=== PATIENT | female | born 1980 | race Caucasian/White ===

== ENCOUNTER 2017-04-29 19:23 | Emergency (ER) | payer MEDICAID ==
[~2017-04-29] VITALS: Ht 157.5 cm; Wt 67.5 kg
[2017-04-29 19:33] VITALS: Ht 157.5 cm; Wt 67.5 kg
[2017-04-29] MEDS ORDERED: ONDANSETRON (ODT) 4 MG TAB ODT STA (21:26)
[2017-04-29] MEDS ORDERED: FAMOTIDINE 20 MG TAB PO ONE (21:30)
[2017-04-29 21:50] LABS: BASOPHILS % 0.3 % (0.0-2.0); EOSINOPHILS # 0.2 10^3/ul (0.0-0.5); EOSINOPHILS % 2.3 % (0.0-7.0); HEMOGLOBIN 12.7 g/dl (12.0-16.0); LYMPHOCYTES % 23.1 % (15.0-51.0); MEAN CORPUSCULAR HEMOGLOBIN 29.6 pg (29.0-33.0); MEAN CORPUSCULAR HGB CONC 33.4 g/dl (32.0-37.0); MEAN CORPUSCULAR VOLUME 88.6 fl (82.0-101.0); MEAN PLATELET VOLUME 8.2 fl (7.4-10.4); MONOCYTE # 0.5 10^3/ul (0.3-0.9); NEUTROPHIL # 5.9 10^3/ul (1.6-7.5); NEUTROPHILS % 67.8 % (39.0-77.0); PLATELET COUNT 304 10^3/UL (140-415); RED BLOOD COUNT 4.29 10^6/ul (4.20-5.40); RED CELL DISTRIBUTION WIDTH 13.6 % (11.5-14.5); WHITE BLOOD COUNT 8.7 10^3/ul (4.8-10.8)
[2017-04-29 22:12] LABS: ALBUMIN 4.1 g/dl (3.3-4.9); ALBUMIN/GLOBULIN RATIO 1.07; BILIRUBIN,INDIRECT 0.1 mg/dl (0-1.1); BILIRUBIN,TOTAL 0.1 mg/dl (0.2-1.3); CALCIUM 9.8 mg/dl (8.4-10.2); CREATININE 0.65 mg/dl (0.44-1.00); POTASSIUM 3.5 mmol/L (3.5-5.1); TOTAL PROTEIN 7.9 g/dl (6.1-8.1)
--- NOTE | 2017-04-29 22:12 | RADRPT ---
PROCEDURE: FIRST TRIMESTER OBSTETRICAL ULTRASOUND: CLINICAL INDICATION: 36-year of age, female. Abdominal pain TECHNIQUE: Real-time sonographic images of the pelvis were obtained transabdominally utilizing mora scale, color, and Doppler imaging. COMPARISON: None available. FINDINGS: LMP not available Uterus: Anteverted. Myometrium is normal. Gestational sac: There is an intrauterine with an intrauterine gestational sac, embryo and yolk sac. Embryo: [place]-rump length measures 3.7 cm , compatible with an average ultrasound age of 10 weeks 4 days . Estimated due date by ultrasound is November 21, 2017. Yolk sac: Present. Embryonic heart rate: 166 beats/min. Cervix: Closed. Right ovary and adnexa: Right ovary is not visualized. Negative for evidence of a right adnexal mass. Left ovary and adnexa: Left ovary is not visualized. Negative for evidence of a left adnexal mass. Other: No free fluid. IMPRESSION: 1. Single live intrauterine with crown-rump length corresponding to 10 weeks 4 days. Est imated due date by ultrasound is November 21, 2017. 2. Transabdominal scanning was performed and the ovaries are not visualized. Negative for evidence a n adnexal mass. RPTAT: HCTS Physician Keiko Date Time Electronically viewed and signed by Physician Keiko on 04/29/2017 22:12 CS/
[2017-04-29 22:14] LABS: ADD UMIC YES; UR ASCORBIC ACID NEGATIVE (NEGATIVE); UR BILIRUBIN (Dip) NEGATIVE (NEGATIVE); UR BLOOD (Dip) NEGATIVE (NEGATIVE); UR CLARITY SLIGHTLY CLOUDY (CLEAR); UR COLOR YELLOW (YELLOW); UR GLUCOSE (Dip) NEGATIVE (NEGATIVE); UR KETONES (Dip) 2+ mg/dL (NEGATIVE); UR LEUKOCYTE ESTERASE (Dip) 1+ Leu/ul (NEGATIVE); UR MUCUS FEW /HPF (NONE SEEN); UR NITRITE (Dip) NEGATIVE (NEGATIVE); UR RBC 2 /HPF (0-5); UR SPECIFIC GRAVITY (Dip) 1.018 (1.003-1.030); UR SQUAMOUS EPITHELIAL CELL FEW /HPF (FEW); UR TOTAL PROTEIN (Dip) NEGATIVE (NEGATIVE); UR UROBILINOGEN (Dip) NEGATIVE (NEGATIVE)
--- NOTE | 2017-04-29 22:26 | ERD ---
ER Documentation Chief Complaint Chief Complaint pt reports lots of burping and not feeling well, 8 wks preg HPI 36-year-old old otherwise healthy female presents to the emergency department for concern of complications with new . Patient was seen by her OB/ [facility] specialist who performed a vaginal ultrasound but was unable to record a heartbeat. She is requesting a repeat ultrasound today to check on baby's heart rate. Patient also states that she has been experiencing lots of burping with mild nausea which worsens with eating. Patient only she reports mild intermittent right-sided flank pain. She currently rates her pain at a distal 4 out of 10 nonradiating. States she did not experience any symptoms of her previous pregnancies. She denies chest pain, shortness of breath or cardiac history. She denies abdominal pain, vaginal bleeding or discharge. She denies dysuria or hematuria. Denies fever or chills. ROS All systems reviewed and are negative except as per history of present illness. Medications Home Meds Active Scripts Cephalexin* (Keflex*) 500 Mg Capsule, 500 MG PO BID for 7 Days, CAP Prov:ANTHONY SEBASTIAN PA-C 04/29/17 Famotidine* (Pepcid*) 20 Mg Tablet, 20 MG PO BID for 14 Days, TAB Prov:ANTHONY SEBASTIAN PA-C 04/29/17 Ondansetron (Ondansetron Odt) 4 Mg Tab.rapdis, 4 MG PO Q6H Y for NAUSEA AND/OR VOMITING, #20 TAB Prov:ANTHONY SEBASTIAN PA-C 04/29/17 Reported Medications [None] No Conflict Check 02/10/11 Allergies Allergies: Coded Allergies: No Known Allergies (Unverified Allergy, Unknown, 04/29/17) PMhx/Soc Medical and Surgical Hx: pt denies Medical Hx, pt denies Surgical Hx History of Surgery: No Anesthesia Reaction: No Hx Neurological Disorder: No Hx Respiratory Disorders: No Hx Cardiac Disorders: No Hx Psychiatric Problems: No Hx Miscellaneous Medical Probl: No Hx Alcohol Use: No Hx Substance Use: No Hx Tobacco Use: No Physical Exam Vitals Vital Signs Date Time Temp Pulse Resp B/P Pulse Ox O2 Delivery O2 Flow Rate FiO2 04/29/17 19:33 98.3 87 16 142/77 100 Physical Exam Const: We will developed, well-nourished, in no acute distress Head: Atraumatic Eyes: Normal Conjunctiva ENT: Normal External Ears, Nose and Mouth. Neck: Full range of motion..~ No meningismus. Resp: Clear to auscultation bilaterally Cardio: Regular rate and rhythm, no murmurs Abd: Soft, non tender, non distended. Normal bowel sounds Skin: No petechiae or rashes Back: No midline or flank tenderness Ext: No cyanosis, or edema Neur: Awake and alert Psych: Normal Mood and Affect Result Diagram: 04/29/17214104/29/172141 Results 24 hrs Laboratory Tests Test 04/29/17 21:30 04/29/17 21:42 Urine Color YELLOW Urine Clarity SLIGHTLY CLOUDY Urine pH 5.0 Urine Specific Carpenter 1.018 Urine Ketones 2+mg/dL Urine Nitrite NEGATIVEmg/dL Urine Bilirubin NEGATIVEmg/dL Urine Urobilinogen NEGATIVEmg/dL Urine Leukocyte Esterase 1+Pavithra/ul Urine Microscopic RBC 2/HPF Urine Microscopic WBC 10/HPF Urine Squamous Epithelial Cells FEW/HPF Urine Mucus FEW/HPF Urine Hemoglobin NEGATIVEmg/dL Urine Glucose NEGATIVEmg/dL Urine Total Protein NEGATIVEmg/dl White Blood Count 8.710^3/ul Red Blood Count 4.2910^6/ul Hemoglobin 12.7g/dl Hematocrit 38.0% Mean Corpuscular Volume 88.6fl Mean Corpuscular Hemoglobin 29.6pg Mean Corpuscular Hemoglobin Concent 33.4g/dl Red Cell Distribution Width 13.6% Platelet Count 83442^3/UL Mean Platelet Volume 8.2fl Neutrophils % 67.8% Lymphocytes % 23.1% Monocytes % 6.0% Eosinophils % 2.3% Basophils % 0.3% Nucleated Red Blood Cells % 0.0/100WBC Neutrophils # 5.910^3/ul Lymphocytes # 2.010^3/ul Monocytes # 0.510^3/ul Eosinophils # 0.210^3/ul Basophils # 0.010^3/ul Nucleated Red Blood Cells # 0.010^3/ul Sodium Level 137mmol/L Potassium Level 3.5mmol/L Chloride Level 102mmol/L Carbon Dioxide Level 23mmol/L Anion Gap 16 Blood Urea Nitrogen 11mg/dl Creatinine 0.65mg/dl Glucose Level 89mg/dl Calcium Level 9.8mg/dl Total Bilirubin 0.1mg/dl Direct Bilirubin 0.00mg/dl Indirect Bilirubin 0.1mg/dl Aspartate Amino Transf (AST/SGOT) 27IU/L Alanine Aminotransferase (ALT/SGPT) 39IU/L Alkaline Phosphatase 93IU/L Total Protein 7.9g/dl Albumin 4.1g/dl Globulin 3.80g/dl Albumin/Globulin Ratio 1.07 Beta HCG, Quantitative 506133.0mIU/ml Current Medications Medications (Trade) Dose Ordered Sig/Fortunato Route PRN Reason Start Time Stop Time Status Last Admin Dose Admin Famotidine (Pepcid) 20 mg ONCE ONCE PO 04/29/17 21:30 04/29/17 21:31 DC 04/29/17 21:35 Ondansetron HCl (Zofran Odt) 4 mg ONCE STAT ODT 04/29/17 21:26 04/29/17 21:29 DC 04/29/17 21:35 Procedures/MDM PROCEDURE: FIRST TRIMESTER OBSTETRICAL ULTRASOUND: CLINICAL INDICATION: 36-year of age, female. Abdominal pain TECHNIQUE: Real-time sonographic images of the pelvis were obtained transabdominally utilizing mora scale, color, and Doppler imaging. COMPARISON: None available. FINDINGS: LMP not available Uterus: Anteverted. Myometrium is normal. Gestational sac: There is an intrauterine with an intrauterine gestational sac, embryo and yolk sac. Embryo: [place]-rump length measures 3.7 cm , compatible with an average ultrasound age of 10 weeks 4 days . Estimated due date by ultrasound is November. Yolk sac: Present. Embryonic heart rate: 166 beats/min. Cervix: Closed. Right ovary and adnexa: Right ovary is not visualized. Negative for evidence of a right adnexal mass. Left ovary and adnexa: Left ovary is not visualized. Negative for evidence of a left adnexal mass. Other: No free fluid. IMPRESSION: 1. Single live intrauterine with crown-rump length corresponding to 10 weeks 4 days. Estimated due date by ultrasound is November 21, 2017. 2. Transabdominal scanning was performed and the ovaries are not visualized. Negative for evidence an adnexal mass. RPTAT: HCTS Physician Keiko Date Time Electronically viewed and signed by Sedrick Patel Physician on 04/29/2017 22: 12 CS/ CC: ANTHONY SEBASTIAN PA-C This is a 36-year-old female who presents to the emergency department requesting a repeat ultrasound as her COMMIS CHEF was not able to detect a heart rate. Patient also reports right-sided flank pain, nausea and burping after eating. She denied abdominal pain or vaginal bleeding. Physical exam unremarkable. She did not exhibit flank tenderness to palpation or abdominal tenderness. Vital signs within normal limits upon arrival. CBC showed no evidence of systemic infection or severe anemia. CMP showed no evidence of electrolyte abnormalities, severe acidosis, alkalosis , renal failure, or liver disease. Lipase showed no evidence of acute pancreatitis. UA evidence of leukocyte esterase and bacteremia concerning for urinary tract infection. I will be treating her with Keflex. Ultrasound live intrauterine , heart rate detected. She received Zofran and Pepcid while in the emergency symptoms. Patient's findings consistent with live intrauterine , acid reflux, and urinary tract infection. Low suspicion for threatened , pyelonephritis, acute coronary syndrome, pneumonia, cholecystitis, pancreatitis , appendicitis or other acute abdomen. Based on patient's history of present illness and physical examination the decision was made to discharge. The patient was re-evaluated after ED treatment and stabilizing measures, and symptoms have improved. There is no evidence of life threatening injuries or illnesses at this time. On re-examination, patient resting in no distress, stable vital signs, reports feeling better and safe for discharge with outpatient follow up with PMD in 1-2 days. Patient given return precautions. Departure Diagnosis: Primary Impression: Flank pain Additional Impressions: UTI (urinary tract infection) Urinary tract infection type: acute cystitis Hematuria presence: without hematuria Qualified Code: N30.00 - Acute cystitis without hematuria Acid reflux Esophagitis presence: esophagitis presence not specified Qualified Code: K21.9 - Gastroesophageal reflux disease, esophagitis presence not specified ANTHONY SEBASTIAN PA-C Apr 29, 2017 22:26
[2017-04-29] MEDS ORDERED: FAMO-96 PO (23:49)
[2017-04-29] MEDS ORDERED: ONDA4TAB14 PO (23:49)
[2017-04-29] MEDS ORDERED: CEPH-443 PO (23:49)
[2017-04-30 00:20] VITALS: BP 138/73; PULSE 81; RESP 17; TEMP 98.8
== END 2017-04-30 00:30 | disposition home or self-care (01) ==
LOC: FTE 19:23
DX: O26.891 Other specified pregnancy related conditions, first trimester (principal); R10.9 Unspecified abdominal pain; O23.11 Infections of bladder in pregnancy, first trimester; O99.611 Diseases of the digestive system complicating pregnancy, first trimester; K21.9 Gastro-esophageal reflux disease without esophagitis; R10.2 Pelvic and perineal pain; Z3A.10 10 weeks gestation of pregnancy
CPT/HCPCS: 36415; 76801; 80053; 81001; 84702; 85025; Z7502; Z7610

== ENCOUNTER 2017-11-17 19:50 | Inpatient (IN) | END 2017-11-19 14:40 | disposition home or self-care (01) | DRG 775 ==

== ENCOUNTER 2018-03-04 06:40 | Emergency (ER) | END 2018-03-04 08:35 | disposition home or self-care (01) ==

== ENCOUNTER 2018-03-22 16:33 | Emergency (ER) | END 2018-03-22 22:20 | disposition home or self-care (01) ==

== ENCOUNTER 2018-03-24 03:26 | Inpatient (IN) | END 2018-03-25 16:09 | disposition home or self-care (01) | DRG 440 ==